=== PATIENT | male | born 1975 | race Two or more races ===

== ENCOUNTER 2021-05-23 00:52 | Emergency (ER) | payer OTHER ==
[~2021-05-23] VITALS: Ht 170.2 cm; Wt 79.4 kg
[2021-05-23] MEDS ORDERED: BACTRIM DS TAB1 EACH PO (01:26)
[2021-05-23] MEDS ORDERED: DICLOFENAC SODI75 MG PO (01:26)
== END 2021-05-23 01:35 | disposition home or self-care (01) ==
LOC: ER 00:52
DX: S40.871A Other superficial bite of right upper arm, initial encounter (principal); L03.113 Cellulitis of right upper limb; W57.XXXA Bitten or stung by nonvenomous insect and other nonvenomous arthropods, initial encounter; Y93.89 Activity, other specified; Y92.89 Other specified places as the place of occurrence of the external cause; Y99.8 Other external cause status